=== PATIENT | female | born 1980 | race Caucasian/White ===

== ENCOUNTER 2017-12-18 14:12 | Emergency (ER) | payer MEDICAID, OTHER ==
[2017-12-18] MEDS ORDERED: KETOROLAC 30 MG INJ IV (16:32)
[2017-12-18 16:46] LABS: URINE BLOOD (Dip) POC Trace-intact (NEGATIVE); URINE GLUCOSE (Dip) POC Negative (NEGATIVE); URINE KETONES (Dip) POC 2+ (NEGATIVE); URINE LEUKOCYTE EST (Dip) POC Trace (NEGATIVE); URINE NITRITE (Dip) POC Negative (NEGATIVE); URINE TOTAL PROTEIN POC Negative (NEGATIVE)
[2017-12-18 16:46] LABS: URINE PH (Dip) POC 5.5 (5.0-8.5)
[2017-12-18] MEDS: METOCLOPRAMIDE 10 MG INJ IV (16:50)
[2017-12-18] MEDS: SOD CHLORIDE 0.9% 1,000 ML IV (16:50)
[2017-12-18] MEDS: DIPHENHYDRAMINE 50 MG INJ IV (16:50)
== END 2017-12-18 18:14 | disposition home or self-care (01) ==
LOC: FTE 14:12
DX: R51 Headache (principal)
CPT/HCPCS: 81003; 96374; 96375; 99284-25